=== PATIENT | male | born 1975 | race Caucasian/White ===

== ENCOUNTER 2020-10-20 09:19 | Emergency (ER) | payer MEDICAID ==
[~2020-10-20] VITALS: Ht 160 cm; Wt 78.5 kg
[2020-10-20 09:57] VITALS: BP 140/107
[2020-10-20] MEDS ORDERED: IBUPROFEN 600 MG TAB PO ONE (10:20)
[2020-10-20] MEDS ORDERED: NAPR-54 PO (10:22)
--- NOTE | 2020-10-20 10:33 | NUR ---
APPLIED ULNER GUTTER SPLINT TO RIGHT ARM WITHOUT ANY ISSUES
[2020-10-20 11:06] VITALS: BP 140/107
--- NOTE | 2020-10-20 11:06 | NUR ---
45 Y/O M BIB SELF FROM HOME, C/O R HAND PAIN FOR 2 WEEKS AFTER MOVING FURNITURE AND STATES HE INJURED HIS ARM. PT STILL HAS SENSATION IN HIS HAND AND FINGERS. VISIBLE SWELLING, NO ABRASION OR LACS. CAP REFILL <3. PMH: DENIES NKA
== END 2020-10-20 11:06 | disposition home or self-care (01) ==
LOC: MED 09:19
DX: S62.396A Other fracture of fifth metacarpal bone, right hand, initial encounter for closed fracture (principal); Z79.899 Other long term (current) drug therapy; W19.XXXA Unspecified fall, initial encounter; Y93.89 Activity, other specified; Y92.89 Other specified places as the place of occurrence of the external cause; Y99.8 Other external cause status
CPT/HCPCS: 73130; 99283

== ENCOUNTER 2024-02-11 12:24 | Emergency (ER) | payer MEDICAID, OTHER ==
[~2024-02-11] VITALS: Ht 160 cm; Wt 76.2 kg
[~2024-02-11 12:24] MED LIST: NAPR-337 PO
[2024-02-11 12:42] VITALS: BP 156/93; PULSE 70; RESP 20; TEMP 98; O2SAT 97
[2024-02-11] MEDS ORDERED: CAPS1ADH5 TP (12:47)
[2024-02-11] MEDS ORDERED: NAPR-1704 PO (12:47)
[2024-02-11] MEDS: KETOROLAC 30 MG/ML VIAL IM ONE (12:56)
== END 2024-02-11 13:15 | disposition home or self-care (01) ==
LOC: MED 12:24
DX: M54.50 Low back pain, unspecified (principal); Z90.49 Acquired absence of other specified parts of digestive tract; Z79.899 Other long term (current) drug therapy
CPT/HCPCS: 96372; 99283; J1885